=== PATIENT | male | born 1940 | race Caucasian/White ===

== ENCOUNTER 2017-10-30 15:11 | Observation (INO) ==
[2017-10-30] MEDS ORDERED: Naloxone 0.4 MG/ML INJ IVP PRN (19:39)
--- NOTE | 2017-10-30 21:55 | Internal Med History&Physical ---
Date of Encounter: 10/31/17 Time of Encounter: 21:30 Internal Medicine - H&P: HPI Chief complaint: Syncopal episode today History of present illness: Mr. Paul is a 77 year old male with pmh of kidney stones, anxiety presenting with complaints of syncopal episode today. patient notes he went to the bathroom this am to use the commode, but the lights were off in the bathroom. So he thinks he sat down and may have lost his balance not sitting properly on the toile seat and fell to the ground. Patient says his female caregive told him he had passed out on the ground after she heard a crash. He doesn't recall passing out, but he however admits to intermittent dizzy spells and light headedness. In the Er at [facility], his heart rate was doumented to be in the upper 30s to lower 40s. An EKG showed sinus bradycardia. Here, he denies any dizziness or lightheadedness. HR was noted to be in the mid 50s on telemetry. Cardiology was consulted Past Med Surg Social Fam HX - Past Medical History Medical history: kidney stones Psychiatric history: no psych history - Past Surgical History Surgical History: cholecystectomy Additional surgical history: Neck surgery - Social History Smoking Status: Never smoker Smokeless Tobacco Status: No Alcohol use: none Drug use: none - Family History Father Living Status: Age at : 80 Cause of : CVA Hx Family Cardiac Disorders: Yes (Pacemaker) Hx Family Neurologic Disorders: Yes (CVA) Internal Medicine - H&P: Meds Atorvastatin [Lipitor] 20 mg PO HS 10/30/17 [History] Citalopram [CeleXA] 20 mg PO DAILY 10/30/17 [History] Diclofenac Sodium [Diclo Gel] 1 each TP QID 10/30/17 [History] 3 Allergy/AdvReac Type Severity Reaction Status Date / Time No Known Allergies Allergy Verified 10/30/17 12:50 All Systems PM: A 10-system review of systems was performed and is negative for pertinent findings except as documented above in the HPI. - Constitutional Constitutional: no chills, no fever(s), no night sweats - EENT Eyes: no change in vision, no discharge, no pain, no photophobia Ears: no ear discharge, no ear pain, no tinnitus Nose, mouth and throat: no dysphagia, no nasal discharge, no neck pain, no sore throat - Cardiovascular Cardiovascular ROS IM: no chest pain, no diaphoresis, no dyspnea, no lightheadedness, no palpitations, no syncope - Respiratory Respiratory: no cough, no dyspnea, no wheezing, no excessive phlegm production - Gastrointestinal Gastrointestinal: no abdominal pain, no diarrhea, no hematemesis, no hematochezia, no melena, no nausea, no vomiting - Musculoskeletal Musculoskeletal ROS IM: no numbness, no tingling - Integumentary Integumentary IM: no rash, no unusual bruising - Neurological Neurological ROS: dizziness, no confusion, no convulsions, no focal weakness, no numbness, no tingling, no tremor(s) - Hematologic/Lymphatic Hematologic/Lymphatic: no easy bruising - Constitutional Vitals: Temp Pulse Resp BP Pulse Ox 97.9 F 58 16 173/89 100 10/30/17 19:01 10/30/17 19:01 10/30/17 19:01 10/30/17 19:10/30/17 19:01 - Head Head exam: Present: atraumatic, normocephalic - Eye Eye exam: Present: PERRL, conjuntiva pink, sclera anicteric Pupils: Present: PERRL - Neck Neck exam general surgery: Present: supple, trachea midline. Absent: lymphadenopathy - Respiratory Respiratory exam: Present: CTAB. Absent: accessory muscle use, rales, rhonchi, wheezes - Cardiovascular Cardiovascular exam: Present: RRR, +S1, +S2. Absent: diastolic murmur, gallop, rubs, systolic murmur - GI/Abdominal GI/Abdominal exam: Present: normal bowel sounds, soft, no peritoneal signs. Absent: distended, tenderness - Extremities Exam Extremities exam: Present: warm, radial pulses palpable and symmetrical. Absent : calf tenderness, cyanotic, pedal edema - Neurological Exam Neurological exam: Present: CN II-XII intact, oriented X3, no focal deficits. Absent: pronater drift, facial droop, speech deficit - Skin Skin exam: Present: dry, intact - Assessment and plan (1) Syncope Current Visit: No Status: Inactive Assessment and plan: Possibly vasovagal vs symptomatic bradycardia vs dehydration. Patient noted to be mildly orthostatic in ER. Will give IV fluids, place on telemetry. Obtain 2D echo and carotid ultrasound inlight of intermittent dizzy spells. HR was documented to be in the upper 30s to low 40s in [facility] [facility] ER. Cardiology consulted and appreciate recs Qualifiers: Encounter type: initial encounter Qualified Code(s): T67.1XXA - Heat syncope, initial encounter (2) Symptomatic bradycardia Current Visit: No Status: Inactive Assessment and plan: See #1 (3) DVT prophylaxis Current Visit: Yes Status: Acute Assessment and plan: Heparin sc - Time Spent With Patient Total time spent is greater than 50% in coordination of care (as documented) at patient's floor/unit and/or counseling patient:
[2017-10-30] MEDS: 0.9 % Sodium Chloride 1,000 ML IVC SCH (21:58)
[2017-10-31 03:48] LABS: Basophils # 0.1 K/mcL (0.0-0.2); Basophils % 1.1 %; Eosinophils # 0.2 K/mcL (0.0-0.6); Hematocrit 38.2 % (37.5-50.1); Hemoglobin 12.6 g/dL (12.9-16.9); Immature Granulocytes % 0.2 % (0-4); Lymphocytes # 2.6 K/mcL (0.6-4.6); Lymphocytes % 32.1 %; Mean Corpuscular Hemoglobin 30.1 pg (28.0-33.3); Mean Corpuscular Volume 91.4 fL (83.0-100.0); Mean Platelet Volume 9.9 fL (9.4-12.4); Monocytes # 0.6 K/mcL (0.0-1.3); Monocytes % 6.9 %; Neutrophils # 4.6 K/mcL (1.6-8.9); Platelet Count 228 K/mcL (140-400); Red Blood Count 4.18 M/mcL (4.19-5.50); Red Cell Distribution Width 13.1 % (11.5-14.5); Segmented Neutrophils % 56.7 %
[2017-10-31 04:15] LABS: BUN/Creatinine Ratio 14 (6-26); Blood Urea Nitrogen 18 mg/dL (8-23); Calcium 8.3 mg/dL (8.6-10.3); Carbon Dioxide 23 mEq/L (23-29); Chloride 111 mEq/L (98-107); Glucose 97 mg/dL (70-105); Magnesium 1.9 mg/dL (1.6-2.6); Osmolality,Calculated 288 (280-300); Phosphorous 3.2 mg/dL (2.7-4.5); Potassium 4.1 mEq/L (3.5-5.1); Sodium 138 mEq/L (136-145); eGFR For Non-African Americans 52 (> 60)
--- NOTE | 2017-10-31 09:28 | Cardiology Consult Note ---
<Babak Borden R - Last Filed: 10/31/17 09:23> Date of Encounter: 10/31/17 Time of Encounter: 09:23 Assessment and Plan (1) Bradycardia Current Visit: Yes Status: Acute HR reportedly 30s-40s on arrival to [facility] ED. EKG on admission at [facility] HR 60, sinus arrhythmia. Similar to prior EKG in 2013. Per pt, has always had a low HR. HR mid 40s at bedside. 12 hr tele AVG HR 46, no significant pauses. Pt is not on any AV hernesto blockers--continue to avoid. K 4.1, Mag 1.9. Check TSH. TTE to evaluate structure and function. Continue to monitor telemetry. Will continue to follow. (2) Syncope Current Visit: Yes Status: Acute Plan as above. Possible syncopal event while attempting to use the bathroom ( vasovagal?). Found to be bradycardic as above. TTE, continue telemetry, check TSH. Qualifiers: Syncope type: unspecified Qualified Code(s): R55 - Syncope and collapse Discussion w patient/family: The assessment and plan as outlined above was discussed with the patient and/or family members who expressed understanding and agreement. All questions were answered. Thank you for involving us in the care of your patient. Please call with any questions. I will discuss all the above with Dr. Mack Adam and make changes as necessary. History of Present Illness Consult date: 10/31/17 Requesting physician: Van Oliver Consult reason: syncope, bradycardia Chief complaint: syncope History of present illness: Mr. Paul is a 77 year old male with PMH of kidney stones, anxiety presented with complaints of possibe syncopal event. Pt reportedly went to the bathroom to use the commode, but the lights were off in the bathroom. He thinks he sat down and may have lost his balance on the toilet seat and fell. He is unsure if he lost consciousness. Patient says his female caregiver told him he had passed out on the ground after she heard a crash. He reports "very rare" episodes of dizziness and lightheadedness. States he has always been told he has a low HR. Reportedly in the ER at [facility], HR was 30s-40s. HR currently mid 40s at bedside. Pt currently asymptomatic and seems confused at times. 12 hr tele AVG HR 46 No significant pauses. Past Med Surg Social Fam HX - Past Medical History Medical history: kidney stones Psychiatric history: no psych history - Past Surgical History Surgical History: cholecystectomy Additional surgical history: Neck surgery - Social History Smoking Status: Never smoker Smokeless Tobacco Status: No Alcohol use: none Drug use: none - Family History Father Living Status: Age at : 80 Cause of : CVA Hx Family Cardiac Disorders: Yes (Pacemaker) Hx Family Neurologic Disorders: Yes (CVA) Medications and Allergies Atorvastatin [Lipitor] 20 mg PO HS 10/30/17 [History] Citalopram [CeleXA] 20 mg PO DAILY 10/30/17 [History] Diclofenac Sodium [Diclo Gel] 1 each TP QID 10/30/17 [History] 3 Allergy/AdvReac Type Severity Reaction Status Date / Time No Known Allergies Allergy Verified 10/30/17 12:50 All Systems Review: The remainder of the systems were reviewed and are negative - Cardiovascular Cardiovascular: lightheadedness, slow heart rate, syncope - Neurological Neurological: dizziness, syncope Physical Examination Vital Signs, Last 4 Hours Temp Pulse Resp BP Pulse Ox 10/31/17 06:51 97.9 F 48 16 111/82 99 Vital Signs Temp Pulse Resp BP Pulse Ox 10/31/17 06:51 97.9 F 48 16 111/82 99 10/31/17 04:42 97.8 F 41 16 96/58 96 10/31/17 00:17 97.6 F 54 16 151/78 98 10/30/17 22:05 100 10/30/17 19:01 97.9 F 58 16 173/89 100 10/30/17 16:43 97.7 F 46 16 172/95 97 Intake and Output 10/30/17 10/31/17 10/31/17 23:59 07:59 15:59 Intake Total 240 / 240 0 / 0 Output Total 550 / 550 500 / 500 Balance -310 / -310 -500 / -500 0 / 0 Intake: Oral 240 / 240 0 / 0 Output: Urine 550 / 550 500 / 500 Other: Meal Dinner Breakfast Percent of Meal Consumed 100% 0% Weight 76.7 kg 77 kg Patient Weight 10/31/17 23:59 Weight 77 kg General: Conversant, No Apparent Distress HEENT: Atraumatic, Normocephaly, Mucus Membranes Moist Neck: No JVD, Normal carotid pulses Cardiac: Reg Rate and Rhythm, Normal S1 and S2, No Murmur Lungs: Normal Breath Sounds, No Wheeze, Rales, Rhonchi Neuro: Alert and responsive, Other (confused at times) Abdomen: Soft, Non-Tender Skin: No rashes noted on visualized skin Musculoskeletal: No Chest Wall Tenderness Extremities: No Clubbing, No Cyanosis, No Edema, Normal Pulses Results 10/31/17 03:18 10/31/17 03:18 Lab Results 10/31/17 10/31/17 03:18 03:18 WBC 8.1 Hgb 12.6 L D Hct 38.2 Plt Count 228 Sodium 138 Potassium 4.1 Chloride 111 H Carbon Dioxide 23 BUN 18 Creatinine 1.32 H Glucose 97 Calcium 8.3 L Magnesium 1.9 Short CBC 10/31/17 Range/Units 03:18 WBC 8.1 (4.3-11.1) K/mcL Hgb 12.6 L D (12.9-16.9) g/dL Hct 38.2 (37.5-50.1) % Plt Count 228 (140-400) K/mcL Neutrophils # 4.6 (1.6-8.9) K/mcL BMP 10/31/17 Range/Units 03:18 Sodium 138 (136-145) mEq/L Potassium 4.1 (3.5-5.1) mEq/L Chloride 111 H (98-107) mEq/L Carbon Dioxide 23 (23-29) mEq/L BUN 18 (8-23) mg/dL Creatinine 1.32 H (0.70-1.30) mg/dL Glucose 97 (70-105) mg/dL Calcium 8.3 L (8.6-10.3) mg/dL Active Medications Atorvastatin Calcium (Lipitor) 20 mg PO HS NICK Stop: 05/01/18 21:01 Last Admin: 10/30/17 21:57 Dose: 20 mg Sodium Chloride (0.9 % Sodium Chloride) 1,000 mls @ 100 mls/hr IVC .Q10H NICK Stop: 10/31/17 15:44 Last Admin: 10/30/17 21:58 Dose: 100 mls/hr Naloxone HCl (Narcan) 0.4 mg IVP Q2MIN PRN PRN Reason: SEE COMMENTS Stop: 05/01/18 19:40 - EKG Interpretation EKG results cardiology: personally reviewed, other (12 hr tele AVG HR 46) Consult Discharge Plan - Plan Referrals: Raiza Stoner CNP [Primary Care Provider] - <Mack Adam - Last Filed: 10/31/17 12:40> Date of Encounter: 10/31/17 - Attending Attestation I have personally performed a face to face evaluation on this patient. I have reviewed and agree with the care plan. History and Exam by me shows: Chronic sinus bradycardia, questionable sycope likely vagally mediated. Will continue to monitor. Assessment and Plan Discussion w patient/family: The assessment and plan as outlined above was discussed with the patient and/or family members who expressed understanding and agreement. All questions were answered. Thank you for involving us in the care of your patient. Please call with any questions. History of Present Illness History of present illness: Mr. Paul is a 77 year old male All Systems Review: The remainder of the systems were reviewed and are negative Physical Examination Vital Signs, Last 4 Hours Temp Pulse Resp BP Pulse Ox 10/31/17 11:05 97.7 F 47 16 167/86 100 Results 10/31/17 03:18 10/31/17 03:18 Lab Results 10/31/17 10/31/17 03:18 03:18 WBC 8.1 Hgb 12.6 L D Hct 38.2 Plt Count 228 Sodium 138 Potassium 4.1 Chloride 111 H Carbon Dioxide 23 BUN 18 Creatinine 1.32 H Glucose 97 Calcium 8.3 L Magnesium 1.9
--- NOTE | 2017-10-31 10:33 | Internal Med Progress Note ---
Hospitalist Progress Note - Encounter Date of Encounter: 10/31/17 Time of Encounter: 10:31 - Subjective Interval History: Patient denies chest pain shortness of breath headache dizziness cough congestion abdominal pain urinary bowel complaint. Significant others at bedside. Review the lab. Review the cardiology note. Heart rate on telemetry sinus bradycardia 48 rate. - Exam Vitals: Temp Pulse Resp BP Pulse Ox 97.9 F 48 16 111/82 99 10/31/17 06:51 10/31/17 06:51 10/31/17 06:51 10/31/17 06:51 10/31/17 06:51 Exam: General appearance: No acute distress, A&O X 3 Head exam: Atraumatic Eye exam: EOMI, PERRLA ENT exam: Moist oral mucosa Neck nontender, supple Respiratory exam: Clear to auscultation bilaterally Cardiovascular exam: Bradycardia and regular rhythm, no systolic murmur Abdominal exam: Soft, nontender, nondistended, positive bowel sounds Extremities exam: No calf tenderness, no pedal edema Present: Neurological exam: Alert, awake, oriented 3, CN II-XII intact, no focal deficits. No facial droop. Normal speech. Normal gait-fear of fall - Assessment and Plan (1) Syncope Current Visit: No Status: Inactive Assessment and Plan: Possibly vasovagal vs symptomatic bradycardia vs dehydration. Patient noted to be mildly orthostatic in ER. Continue IV fluid normal saline 75, continue to monitor on telemetry. A weighted report of echo and carotid ultrasound. Cardiology on board. HR was documented to be in the upper 30s to low 40s in [place] ER. (2) Symptomatic bradycardia Current Visit: No Status: Inactive Assessment and Plan: See #1 (3) DVT prophylaxis Current Visit: Yes Status: Acute Assessment and Plan: Heparin sc - Time Spent with Patient Total time spent is greater than 50% in coordination of care (as documented) at patient's floor/unit and/or counseling patient: 25 - 35 minutes Internal Medicine: Result - Labs CBC & Chem 7: 10/31/17 03:18 10/31/17 03:18 Labs: Short CBC 10/31/17 Range/Units 03:18 WBC 8.1 (4.3-11.1) K/mcL Hgb 12.6 L D (12.9-16.9) g/dL Hct 38.2 (37.5-50.1) % Plt Count 228 (140-400) K/mcL Neutrophils # 4.6 (1.6-8.9) K/mcL [facility] 10/31/17 03:18 Sodium 138 Potassium 4.1 Chloride 111 H Carbon Dioxide 23 BUN 18 Creatinine 1.32 H Glucose 97 Calcium 8.3 L Consult Discharge Plan - Plan Referrals: Raiza Stoner, [employer] [Primary Care Provider] - (1) Syncope Qualifiers: Encounter type: initial encounter Qualified Code(s): T67.1XXA - Heat syncope , initial encounter
[2017-10-31] MEDS: 0.9 % Sodium Chloride 1,000 ML IVC SCH (12:33)
[2017-11-01] MEDS ORDERED: Haloperidol Lactate 5 MG/ML VIAL ONE (05:55)
[2017-11-01] MEDS ORDERED: Haloperidol Lactate 5 MG/ML VIAL IM STA (05:59)
[2017-11-01] MEDS ORDERED: Ziprasidone injection 20 MG/ML VIAL IM STA (06:06)
--- NOTE | 2017-11-01 06:19 | Event Note ---
Date of Encounter: 11/01/17 Time of Encounter: 05:49 I was paged to come to patient's room immediately due to patient being extremely agitated. He was reportedly becoming more confused as the night went on asking where he was and yelling out. When I arrived on the floor patient was walking around shouting that he was going to leave and to get out of his way. Security was present. I approached the patient and began to assess his mental status however he refused to answer questions and shouted obscenities. He then stated that he would go home, get his guns, and come back to confront the staff. He was then escorted back to bed by security and 4-point restraints were placed. He was given Haldol 2mg IM as he had previously pulled off his telemetry leads and pulled his IV. Attending physician was notified and he came to assess the patient. He remained agitated and 20 mg of Geodon was then ordered. Upon follow up reassessment after medication administration, the patient was calmer with heart rate in the 70s and BP 138/76. Should remain under close observation with frequent orientation by nursing staff and family members.
--- NOTE | 2017-11-01 10:44 | Cardiology Progress Note ---
Date of Encounter: 11/01/17 Time of Encounter: 09:30 Assessment and Plan (1) Bradycardia Current Visit: Yes Status: Acute Per cardiology: -HR reportedly 30s-40s on arrival to [place] ED. -EKG on admission at [facility] HR 60, sinus arrhythmia. Similar to prior EKG in 2013. Per pt, has always had a low HR. -Average HR previous 12 hours noted to be 53, SB. Per at bedside, HR is always in the 40-50s. -Pt is not on any AV hernesto blockers, continue to avoid. -K 4.1, Mag 1.9. -TTE with LVEF 60%, bi-atrial enlargement, mild MR, mild TR, mild OK, no segmental wall motion abnormalities noted. -Reports occasional lightheadedness, states about baseline. -Cardiology will sign off and will follow in outpatient setting. Follow up set. (2) Syncope Current Visit: Yes Status: Acute Per cardiology: -Possible syncopal event while attempting to use the bathroom (vasovagal?). -Cardiology will continue to follow in outpatient setting. Qualifiers: Syncope type: unspecified Qualified Code(s): R55 - Syncope and collapse Discussion w patient/family: The assessment and plan as outlined above was discussed with the patient and/or family members who expressed understanding and agreement. All questions were answered. Thank you for involving us in the care of your patient. Please call with any questions. Discussed and reviewed with Dr.John Adam. Subjective Principal diagnosis: syncope Interval history: Per reports, patient had some confusion last night. Today seems mildly confused. Patient's sitting at bedside. Patient denies complaints today. Objective Vital Signs, Last 4 Hours Pulse Resp BP Pulse Ox 11/01/17 07:51 93 11/01/17 07:46 66 116/55 93 11/01/17 07:41 116/55 11/01/17 07:10 138/76 11/01/17 07:06 72 17 General: Conversant, No Apparent Distress HEENT: Atraumatic, Normocephaly, Mucus Membranes Moist Neck: No JVD, Normal carotid pulses Cardiac: Reg Rate and Rhythm, Normal S1 and S2, No Murmur Lungs: Normal Breath Sounds, No Wheeze, Rales, Rhonchi Neuro: Alert and responsive, Other (Oriented to person and place. ) Abdomen: Soft, Non-Tender Skin: No rashes noted on visualized skin Musculoskeletal: No Chest Wall Tenderness Extremities: No Clubbing, No Cyanosis, No Edema, Normal Pulses Results 10/31/17 03:18 10/31/17 03:18 Impressions Echocardiogram 10/31/17 19:41 Impressions: LVEF 60%. Indeterminate diastolic function. Normal right ventricular structure and function. Bi-atrial enlargment. Mild mitral regurgitation. Mild tricuspid regurgitation. Mild pulmonic regurgitation. No pulmonary hypertension. Left Ventricular Wall Motion: Rest Echo Findings All wall segments showed normal motion. Findings: Study Quality * Technically adequate exam. ECG Findings * Sinus bradycardia. Left Ventricle * LVEF 60%. * Normal LV chamber size, wall thickness and function. * Indeterminate diastolic function. Right Ventricle * Normal right ventricular structure and function. Left Atrium * Severely dilated left atrium. Right Atrium * Moderately dilated right atrium. Mitral Valve * Normal mitral valve structure. * No mitral stenosis. * Mild mitral regurgitation. Aortic Valve * No aortic regurgitation. * Trileaflet aortic valve. * No aortic stenosis. Tricuspid Valve * Normal tricuspid valve structure. * Mild tricuspid regurgitation. * Estimated RA pressure is 3 mmHg. * Estimated RVSP is 32 mmHg. * No pulmonary hypertension. Pulmonic Valve * Pulmonic valve is not well visualized. * No pulmonic stenosis. * Mild pulmonic regurgitation. Pulmonary Artery * Pulmonary artery not well visualized. Aorta * Normally sized aortic root. Pericardium * There is no pericardial effusion present. Interatrial Septum * No evidence of PFO by color Doppler. IVC * Normal IVC dimensions and inspiratory collapse. Active Medications Atorvastatin Calcium (Lipitor) 20 mg PO HS [facility] Stop: 05/01/18 21:01 Last Admin: 10/31/17 22:00 Dose: 20 mg Naloxone HCl (Narcan) 0.4 mg IVP Q2MIN PRN PRN Reason: SEE COMMENTS Stop: 05/01/18 19:40 Laboratory Tests 10/31/17 10/31/17 03:18 03:18 Hgb 12.6 L D Creatinine 1.32 H - Imaging and Cardiology Chest Xray: report reviewed Echo: report reviewed - EKG Interpretation EKG results cardiology: other (Telemetry reviewed with average HR previous 12 hours noted to be 53, SB. PVCs and PACs noted.) Consult Discharge Plan - Plan Referrals: Raiza Stoner CNP [Primary Care Provider] -
--- NOTE | 2017-11-01 12:12 | Discharge Summary ---
- NOTES TO OUTPATIENT PROVIDER Notes to Outpatient Provider: f/u with seismic plotter in 2-3 weeks. f/u with PCP in 3-5 days Date of Encounter: 11/01/17 Time of Encounter: 15:50 - Discharge Diagnosis (1) Syncope Priority: Primary Status: Inactive Assessment and Plan: Possibly vasovagal vs symptomatic bradycardia vs dehydration. Patient has infrequent syncope attack and had 5 episodes of syncope and last for 5 years. Patient was admitted to the floor on telemetry and consulted cardiology. As per cardiology it is Possible syncopal event while attempting to use the bathroom (vasovagal?). EKG on admission heart rate 60s with sinus arrhythmia. No change compared to prior EKG in 2013. As per patient and 6 great. Patient is not on any AV hernesto blockers and advised to continue to avoid. Echocardiogram with preserved LV function 60% by atrial enlargement mild MR, mild TR and mild ND with no segmental wall motion abnormality. Carotid ultrasound with finding of minimal plaques throughout bilateral carotid arteries. MRI brain with no acute finding but has mild global parenchymal volume loss with chronic microvascular ischemic changes. Cardiology signed off and okay to discharge patient home on outpatient follow- up. Holter might be consider. I will discharge patient on baby aspirin, statin and advised to follow PCP on OPD basis. Today morning Patient was confused and agitated wanted to go home and looking for the door to exit therefore temporary restraint was placed. As per significant other patient has underlying mild dementia and get easily confused in new place as it also happened 4 years ago when he got hospitalized. Ativan was given and that relieved the symptoms Qualifiers: Encounter type: initial encounter Qualified Code(s): T67.1XXA - Heat syncope, initial encounter (2) Symptomatic bradycardia Priority: Primary Status: Inactive Assessment and Plan: Chronic. Now heart rate is staying around 50s and 60s. Consulted cardiology who is okay to discharge. Hospital course: Mr. Paul is a 77 year old male got admitted for further evaluation of syncope and found to have bradycardia on admission. Patient was admitted in telemetry and consulted cardiology. Please see detail in diagnosis part of discharge summary. At the time of discharge patient is sleepy but arousable, no focal neurological deficit, ambulating and tolerating oral diet. Discussed discharge plan with patient and significant other - Time Spent with Patient Total time spent providing and/or coordinating discharge services: - Discharge Medications Home Medications: Atorvastatin [Lipitor] 20 mg PO HS 10/30/17 [History] Citalopram [CeleXA] 20 mg PO DAILY 10/30/17 [History] Diclofenac Sodium [Diclo Gel] 1 each TP QID PRN 10/30/17 [History] Acetaminophen [Tylenol] 325 mg PO Q6HR PRN 10/31/17 [History] Aspirin 81 mg PO DAILY #30 tab.chew 11/01/17 [Rx] LORazepam [Ativan] 0.5 mg PO DAILY PRN 3 Days #5 tablet 11/01/17 [Rx] Allergies/Adverse Reactions: 3 Allergy/AdvReac Type Severity Reaction Status Date / Time No Known Allergies Allergy Verified 10/31/17 16:41 Date of admission: 10/30/17 16:18 Primary care physician: Raiza Stoner Consults: 10/30/17 19:46 Consult to Cardiology [CONS] Routine Comment: Consulting Provider: [facility] [place] Reason for Consult: query symptomatic bradycardia Call Completed: Yes - Constitutional Vitals: Temp Pulse Resp BP Pulse Ox 98.3 F 66 17 116/55 93 11/01/17 03:35 11/01/17 07:46 11/01/17 07:06 11/01/17 07:46 11/01/17 07:51 Exam: General appearance: No acute distress Head exam: Atraumatic Eye exam: EOMI, PERRLA ENT exam: Moist oral mucosa Neck nontender, supple Respiratory exam: Clear to auscultation bilaterally Cardiovascular exam: Regular rate and rhythm, no systolic murmur Abdominal exam: Soft, nontender, nondistended, positive bowel sounds Extremities exam: No calf tenderness, no pedal edema Present: Neurological exam: Sleepy but arousable easily and oriented to person. Grossly CN II-XII intact, no focal deficits. No facial droop. Normal gait. Romberg sign negative - Patient Status Disposition: Home, Self-Care Condition: Fair Overall status at discharge: patient is progressing back to baseline - Discharge Instructions Follow Up With: Raiza Stoner, KRYSTINA [Primary Care Provider] - - Diet and Activity Diet: low fat, low cholesterol
[2017-11-01] MEDS ORDERED: *HR* LORazepam 2 MG/ML VIAL IVP ONE (12:15)
[2017-11-01] MEDS ORDERED: *HR* LORazepam 0.5 MG TABLET PO ONE (12:24)
[2017-11-01] MEDS ORDERED: *HR* LORazepam 0.5 MG TABLET PO PRN (15:57)
[2017-11-01 16:34] VITALS: BP 116/55
[2017-11-02] MEDS ORDERED: Aspirin 81 MG TAB.CHEW PO SCH (09:00)
== END 2017-11-01 16:35 | disposition home or self-care (01) ==
LOC: 2NENU
PROVIDERS: ADMIT Internal Medicine; ATTEND Internal Medicine

== ENCOUNTER 2020-01-15 17:42 | Inpatient (IN) ==
[2020-01-15 18:51] LABS: Basophils # 0.1 K/mcL (0.0-0.2); Basophils % 1.1 %; Eosinophils # 0.2 K/mcL (0.0-0.6); Eosinophils % 1.5 %; Hematocrit 45.5 % (37.5-50.1); Hemoglobin 14.7 g/dL (12.9-16.9); Immature Granulocytes % 0.4 % (0-4); Lymphocytes # 2.8 K/mcL (0.6-4.6); Lymphocytes % 28.2 %; Mean Corpuscular HGB Conc 32.3 g/dL (31.6-35.5); Mean Corpuscular Hemoglobin 30.4 pg (28.0-33.3); Mean Corpuscular Volume 94.2 fL (83.0-100.0); Monocytes # 0.6 K/mcL (0.0-1.3); Monocytes % 6.5 %; Neutrophils # 6.1 K/mcL (1.6-8.9); Platelet Count 307 K/mcL (140-400); Red Blood Count 4.83 M/mcL (4.19-5.50); Red Cell Distribution Width 13.1 % (11.5-14.5); Segmented Neutrophils % 62.3 %; White Blood Count 9.8 K/mcL (4.3-11.1)
[2020-01-15 19:08] LABS: BUN/Creatinine Ratio 20 (6-26); Blood Urea Nitrogen 27 mg/dL (8-23); Calcium 9.2 mg/dL (8.6-10.3); Carbon Dioxide 25 mEq/L (23-29); Chloride 106 mEq/L (98-107); Glucose 99 mg/dL (70-105); Osmolality,Calculated 291 (280-300); Potassium 4.2 mEq/L (3.5-5.1); Sodium 138 mEq/L (136-145); eGFR For African Americans > 60 (> 60); eGFR For Non-African Americans 51 (> 60)
[2020-01-15 19:09] LABS: Troponin I < 0.03 ng/mL (< 0.04)
[2020-01-15 19:23] LABS: Thyroid Stimulating Hormone 4.707 mcIU/mL (0.340-5.600)
[2020-01-15 20:55] LABS: Activated Partial Thrombo Time 29.3 Seconds (26.0-36.0); INR 1.2; Prothrombin Time 13.8 Seconds (9.4-12.1)
[2020-01-15] MEDS ORDERED: Naloxone 0.4 MG/ML INJ IVP PRN (21:28)
[2020-01-16 03:48] LABS: BUN/Creatinine Ratio 19 (6-26); Blood Urea Nitrogen 24 mg/dL (8-23); Calcium 9.1 mg/dL (8.6-10.3); Carbon Dioxide 26 mEq/L (23-29); Chloride 104 mEq/L (98-107); Glucose 95 mg/dL (70-105); Osmolality,Calculated 290 (280-300); Phosphorous 2.9 mg/dL (2.7-4.5); Potassium 3.8 mEq/L (3.5-5.1); Sodium 138 mEq/L (136-145); Troponin I < 0.03 ng/mL (< 0.04); eGFR For African Americans > 60 (> 60); eGFR For Non-African Americans 56 (> 60)
[2020-01-16 05:47] LABS: Hematocrit 44.9 % (37.5-50.1); Immature Granulocytes % 0.3 % (0-4); Lymphocytes # 2.9 K/mcL (0.6-4.6); Lymphocytes % 32.5 %; Mean Corpuscular HGB Conc 31.2 g/dL (31.6-35.5); Mean Corpuscular Hemoglobin 29.5 pg (28.0-33.3); Mean Corpuscular Volume 94.5 fL (83.0-100.0); Mean Platelet Volume 10.4 fL (9.4-12.4); Neutrophils # 4.8 K/mcL (1.6-8.9); Platelet Count 308 K/mcL (140-400); Red Blood Count 4.75 M/mcL (4.19-5.50); Red Cell Distribution Width 13.2 % (11.5-14.5); Segmented Neutrophils % 54.6 %; White Blood Count 8.8 K/mcL (4.3-11.1)
[2020-01-16 05:48] LABS: Basophils # 0.1 K/mcL (0.0-0.2); Basophils % 1.2 %; Eosinophils # 0.2 K/mcL (0.0-0.6); Eosinophils % 2.6 %; Monocytes # 0.8 K/mcL (0.0-1.3); Monocytes % 8.8 %
[2020-01-16] MEDS ORDERED: Acetaminophen 325 MG TABLET PO PRN (09:36)
[2020-01-16] MEDS ORDERED: Regadenoson 0.4 MG/5 ML SYRINGE IVP ONE (09:40)
[2020-01-17 07:19] LABS: Basophils # 0.1 K/mcL (0.0-0.2); Eosinophils # 0.2 K/mcL (0.0-0.6); Eosinophils % 2.6 %; Hematocrit 42.4 % (37.5-50.1); Immature Granulocytes % 0.4 % (0-4); Lymphocytes # 2.4 K/mcL (0.6-4.6); Lymphocytes % 27.2 %; Mean Corpuscular Volume 93.8 fL (83.0-100.0); Mean Platelet Volume 9.8 fL (9.4-12.4); Monocytes # 0.7 K/mcL (0.0-1.3); Monocytes % 7.3 %; Neutrophils # 5.5 K/mcL (1.6-8.9); Platelet Count 279 K/mcL (140-400); Red Blood Count 4.52 M/mcL (4.19-5.50); Segmented Neutrophils % 61.5 %
[2020-01-17 07:26] LABS: BUN/Creatinine Ratio 19 (6-26); Blood Urea Nitrogen 26 mg/dL (8-23); Carbon Dioxide 25 mEq/L (23-29); Chloride 108 mEq/L (98-107); Glucose 113 mg/dL (70-105); Osmolality,Calculated 292 (280-300); Potassium 4.2 mEq/L (3.5-5.1); Sodium 138 mEq/L (136-145); eGFR For African Americans > 60 (> 60); eGFR For Non-African Americans 51 (> 60)
[2020-01-17] MEDS ORDERED: Nitroglycerin 1,000 MCG/10 ML VIAL IV ONE (08:01)
[2020-01-17] MEDS ORDERED: Heparin 1,000 UNITS/500 mL 500 ML ONE (08:01)
[2020-01-17] MEDS ORDERED: *HR* Heparin 10,000 UNIT/10 ML VIAL ONE (08:01)
[2020-01-17] MEDS ORDERED: 0.9 % Sodium Chloride 1,000 ML ONE (08:01)
[2020-01-17] MEDS ORDERED: ISOVUE-370 200 ML INFUS..BTL ONE (08:01)
[2020-01-17] MEDS ORDERED: *HR* Atropine Sulfate 1 MG/10 ML SYRINGE ONE (08:50)
[2020-01-17] MEDS ORDERED: *HR* Midazolam HCl 2 MG/2 ML VIAL ONE (08:50)
[2020-01-17] MEDS ORDERED: *HR* FentaNYL (PF) 100 MCG/2 ML VIAL ONE (08:50)
[2020-01-17] MEDS ORDERED: Ondansetron 4 MG/2 ML VIAL IVP PRN (09:55)
[2020-01-17] MEDS ORDERED: *HR* HYDROcodone/Acet 5/325 mg TABLET PO PRN (09:55)
[2020-01-17] MEDS ORDERED: 0.9 % Sodium Chloride 1,000 ML IVC SCH (10:00)
[2020-01-18 06:31] LABS: Basophils # 0.1 K/mcL (0.0-0.2); Basophils % 0.5 %; Eosinophils % 0.3 %; Hematocrit 43.5 % (37.5-50.1); Hemoglobin 14.4 g/dL (12.9-16.9); Immature Granulocytes % 0.5 % (0-4); Lymphocytes # 1.2 K/mcL (0.6-4.6); Lymphocytes % 10.4 %; Mean Corpuscular HGB Conc 33.1 g/dL (31.6-35.5); Mean Corpuscular Hemoglobin 30.8 pg (28.0-33.3); Mean Corpuscular Volume 93.1 fL (83.0-100.0); Monocytes # 0.6 K/mcL (0.0-1.3); Monocytes % 5.4 %; Neutrophils # 9.3 K/mcL (1.6-8.9); Platelet Count 297 K/mcL (140-400); Red Blood Count 4.67 M/mcL (4.19-5.50); Red Cell Distribution Width 12.7 % (11.5-14.5); Segmented Neutrophils % 82.9 %; White Blood Count 11.2 K/mcL (4.3-11.1)
[2020-01-18 06:52] LABS: Calcium 9.1 mg/dL (8.6-10.3); Potassium 3.7 mEq/L (3.5-5.1)
[2020-01-18] MEDS ORDERED: CeFAZolin Syr 2,000MG/20 ML 2,000 MG/20 ML SYRINGE IVPB ONE (09:40)
[2020-01-18] MEDS ORDERED: 0.9 % Sodium Chloride 1,000 ML ONE (13:40)
[2020-01-18] MEDS ORDERED: 0.9 % Sodium Chloride 500 ML ONE (13:40)
[2020-01-18] MEDS ORDERED: *HR* FentaNYL (PF) 100 MCG/2 ML VIAL ONE (13:41)
[2020-01-18] MEDS ORDERED: *HR* Midazolam HCl 2 MG/2 ML VIAL ONE (13:41)
[2020-01-18] MEDS ORDERED: Haloperidol Lactate 5 MG/ML VIAL IVP ONE (16:11)
[2020-01-18] MEDS: CeFAZolin 2 GM/120 ML BAG IVPB SCH (16:29)
[2020-01-19] MEDS: CeFAZolin 2 GM/120 ML BAG IVPB SCH (01:21)
[2020-01-19] MEDS ORDERED: Haloperidol Lactate 5 MG/ML VIAL IM ONE (01:38)
[2020-01-19 04:52] LABS: Hematocrit 41.7 % (37.5-50.1); Hemoglobin 13.8 g/dL (12.9-16.9); Mean Corpuscular HGB Conc 33.1 g/dL (31.6-35.5); Mean Corpuscular Hemoglobin 30.9 pg (28.0-33.3); Mean Corpuscular Volume 93.3 fL (83.0-100.0); Mean Platelet Volume 9.8 fL (9.4-12.4); Platelet Count 267 K/mcL (140-400); Red Blood Count 4.47 M/mcL (4.19-5.50); Red Cell Distribution Width 13.1 % (11.5-14.5); White Blood Count 10.8 K/mcL (4.3-11.1)
[2020-01-19 05:11] LABS: BUN/Creatinine Ratio 17 (6-26); Blood Urea Nitrogen 21 mg/dL (8-23); Carbon Dioxide 23 mEq/L (23-29); Chloride 107 mEq/L (98-107); Magnesium 1.8 mg/dL (1.6-2.6); Phosphorous 2.8 mg/dL (2.7-4.5); Sodium 137 mEq/L (136-145); eGFR For African Americans > 60 (> 60); eGFR For Non-African Americans 54 (> 60)
[2020-01-19 11:02] VITALS: BP 144/76
[2020-01-19] MEDS ORDERED: Aspirin 81 MG TAB.CHEW PO SCH (11:45)
== END 2020-01-19 12:59 | disposition home or self-care (01) | DRG 244 ==
LOC: EMEROOARM 17:42 → 2ANU 17:42 → SUATTDRO 20:06 → 2ANU 20:36
PROVIDERS: ADMIT Internal Medicine; ATTEND Internal Medicine